=== PATIENT | female | born 1985 | race Caucasian/White ===

== ENCOUNTER 2017-12-30 14:06 | Outpatient (CLI) | payer OTHER | END 2017-12-30 14:24 | disposition home or self-care (01) | LOC: RAD 14:06 | DX: M54.5 Low back pain (principal) ==

== ENCOUNTER 2018-07-28 11:42 | Outpatient (CLI) | payer OTHER | END 2018-07-28 12:00 | disposition home or self-care (01) | LOC: RAD 501 11:42 | DX: M54.5 Low back pain (principal) ==

== ENCOUNTER 2020-03-03 09:31 | Outpatient (CLI) | payer OTHER | END 2020-03-03 09:48 | disposition home or self-care (01) | LOC: SONOGRAMA 09:31 | PROVIDERS: ATTEND Specialist | DX: K76.0 Fatty (change of) liver, not elsewhere classified (principal) ==

== ENCOUNTER 2022-04-19 13:55 | Outpatient (CLI) | payer OTHER | END 2022-04-19 14:03 | disposition home or self-care (01) | LOC: MAMO-SONO 13:55 | PROVIDERS: ATTEND Obstetrics & Gynecology Maternal & Fetal Medicine | DX: N63 Unspecified lump in breast (principal); Z12.31 Encounter for screening mammogram for malignant neoplasm of breast; N64.4 Mastodynia; N60.11 Diffuse cystic mastopathy of right breast ==